=== PATIENT | male | born 1940 | race Caucasian/White ===

== ENCOUNTER → 2017-03-19 | Day surgery (SDC) | payer MEDICARE ==
[~2017-03-19] MED LIST: ASPI81TA82 PO; GLUC10TA3 PO; LACTATED RINGER'S 1000 ML INJ 1,000 ML ONE; LANTUSP SQ; LISI-360 PO; METO25 PO; OMEP20TA PO; PROPOFOL 500 MG/50 ML BTL IV ONE; SIMV80TA PO; SODI325T PO; TAMS0.4C4 PO; VITA200017 PO
--- NOTE | 2017-03-19 12:04 | GIPROC ---
[facility] [address] [facility], [address] EGD WITH DILATION PROCEDURE REPORT EXAM DATE: 03/19/2017 PATIENT NAME: Aron Hoyt MR#: [id number] BIRTHDATE: 1940 ATTENDING: India Deleon MD ORDER #: [id number] [employer] COORDINATOR: Katelyn Frias and Sidra Hartley RN STATUS: outpatient INDICATIONS: The patient is a 76 yr old male here for an EGD with dilation due to dysphagia history of corkscrew esophagus PROCEDURE PERFORMED: EGD w/ biopsy MEDICATIONS: None and Per Anesthesia. TOPICAL ANESTHETIC: none CONSENT: The patient understands the risks and benefits of the procedure and understands that these risks include, but are not limited to: sedation, allergic reaction, infection, perforation and/or bleeding. Alternative means of evaluation and treatment include, among others: physical exam, x-rays, and/or surgical intervention. The patient elects to proceed with this endoscopic procedure. medical equipment was checked for proper function. Hand hygiene and appropriate measures for infection prevention was taken. After the risks, benefits and alternatives of the procedure were thoroughly explained, Informed consent was verified, confirmed and timeout was successfully executed by the treatment team. The patient was anesthetized with topical anesthesia and the EC-[id number] ([id number]) endoscope was introduced through the mouth and advanced to the second portion of the duodenum. The instrument was slowly withdrawn as the mucosa was fully examined. Duodenitis second portion-biopsy esopahgitis distal esophagus /stricture-biopsy gastrtis antrum-biopsy very spastic esophagus. Dilation was performed at gastroesophageal junction. DILATOR: SIZE(S): RESISTANCE: HEME: APPEARANCE: Dilator: Chichoary over guidewire Size(s): 15,17 COMMENT: Retroflexed views revealed a hiatal hernia ADVERSE EVENTS: There were no complications. IMPRESSIONS: 1. Duodenitis second portion-biopsy esopahgitis distal esophagus /stricture-biopsy gastrtis antrum-biopsy very spastic esophagus 2. Retroflexed views revealed a hiatal hernia RECOMMENDATIONS: 1. Await biopsy results. Biopsy results will not be ready for 7-10 days. If you don't hear from us in two weeks, call our office for biopsy results. 2. Continue PPI 3. Avoid NSAIDS 4. Esophageal manometry call if not better in 1-2 weks for rx/botox? fu office 4 weeks REPEAT EXAM: Return 2 years EGD India Deleon MD eSigned: India Deleon MD 03/19/2017 12:04 PM cc: Jacklyn Santos [facility] Shell Baldwin M.D. PATIENT NAME: Aron Hoyt MR#: [id number]
--- NOTE | 2017-03-19 12:27 | GIPROC ---
[facility] [address] [facility], [address] COLONOSCOPY PROCEDURE REPORT EXAM DATE: 03/19/2017 PATIENT NAME: Aron Hoyt MR #: [id number] BIRTHDATE: 1940 ENDOSCOPIST: India Deleon MD ORDER #: [id number] [employer] PROM[employer]ER: Katelyn Frias and Sidra Hartley RN STATUS: outpatient INDICATIONS: The patient is a 76 yr old male here for a colonoscopy due to high risk patient with personal history of colonic polyps PROCEDURE PERFORMED: Colonoscopy with biopsy MEDICATIONS: None and Per Anesthesia. PREP QUALITY: fair PREP TYPE:GoLytely ESTIMATED BLOOD LOSS: None CONSENT: The patient understands the risks and benefits of the procedure and understands that these risks include, but are not limited to: sedation, allergic reaction, infection, perforation and/or bleeding. Alternative means of evaluation and treatment include, among others: physical exam, x-rays, and/or surgical intervention. The patient elects to proceed with this endoscopic procedure. medical equipment was checked for proper function. Hand hygiene and appropriate measures for infection prevention was taken. After the risks, benefits and alternatives of the procedure were thoroughly explained, Informed consent was verified, confirmed and timeout was successfully executed by the treatment team. A digital exam revealed external hemorrhoids The EG-[id number] ([id number]) and EC-3490Li ([id number]) endoscope was introduced through the anus and advanced to the cecum, which was identified by both the appendix and ileocecal valve. The instrument was then slowly withdrawn as the colon was fully examined. COLON FINDINGS: Diverticulosis sigmoid, descending internal hemorrhoids polyp diminutive ascending colon-5 mm-cold biopsy with removal semisolid stool -agressive washing. Retroflexed views revealed internal hemorrhoids and Retroflexed views revealed medium internal hemorrhoids The scope was then completely withdrawn from the patient and the procedure terminated. PROCEDURE WITHDRAWAL TIME:6minutes ADVERSE EVENTS: There were no complications. IMPRESSIONS: 1. Diverticulosis sigmoid, descending internal hemorrhoids polyp diminutive ascending colon-5 mm-cold biopsy with removal semisolid stool -agressive washing 2. Retroflexed views revealed internal hemorrhoids 3. Retroflexed views revealed medium internal hemorrhoids 4. Revealed external hemorrhoids RECOMMENDATIONS: 1. Await biopsy results. Biopsy results will not be ready for 7-10 days. If you don't hear from us in two weeks, call our office for results. 2. Benefiber 2 tsp daily 3. Probiotics from any C or health food store RECALL: Return 3 years Colonoscopy India Deleon MD eSigned: India Deleon MD 03/19/2017 12:26 PM [facility]: [facility] Carroll PATIENT NAME: Aron Hoyt MR#: [id number]
== END | disposition home or self-care (01) ==
LOC: ESDC 08:33
PROVIDERS: ATTEND Internal Medicine Gastroenterology
DX: Z12.11 Encounter for screening for malignant neoplasm of colon (principal); Z86.010 Personal history of colon polyps; K57.90 Diverticulosis of intestine, part unspecified, without perforation or abscess without bleeding; K64.8 Other hemorrhoids; D12.2 Benign neoplasm of ascending colon; K64.4 Residual hemorrhoidal skin tags; R13.10 Dysphagia, unspecified; K29.80 Duodenitis without bleeding; K29.70 Gastritis, unspecified, without bleeding; K20.9 Esophagitis, unspecified; K22.4 Dyskinesia of esophagus; E11.9 Type 2 diabetes mellitus without complications; Z79.4 Long term (current) use of insulin
CPT/HCPCS: 00740; 00810; 43239; 43248; 45380; 82948; 88305; 88312; J7120